=== PATIENT | male | born 1980 | race Caucasian/White ===

== ENCOUNTER 2023-05-26 14:36 | Emergency (ER) | payer MEDICAID ==
[~2023-05-26] VITALS: Ht 180 cm; Wt 85.0 kg
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
[2023-05-26 14:57] LABS: BASOPHILS % (AUTO) 1 % (0-10); EOSINOPHILS # (AUTO) 0.1 10^3/uL (0.0-0.3); EOSINOPHILS % (AUTO) 2 % (0-10); HEMATOCRIT 42 % (40-54); HEMOGLOBIN 14.2 g/dL (13.3-17.7); LYMPHOCYTES # (AUTO) 1.7 X 10^3 (1.0-4.0); LYMPHOCYTES % (AUTO) 35 % (12-44); MEAN CORPUSCULAR HEMOGLOBIN 30 pg (25-34); MEAN CORPUSCULAR HGB CONC 34 g/dL (32-36); MEAN CORPUSCULAR VOLUME 88 fL (80-99); MONOCYTES # (AUTO) 0.5 X 10^3 (0.0-1.0); MONOCYTES % (AUTO) 10 % (0-12); NEUTROPHILS # (AUTO) 2.6 X 10^3 (1.8-7.8); NEUTROPHILS % (AUTO) 52 % (42-75); PLATELET COUNT 223 10^3/uL (130-400)
[2023-05-26 15:03] LABS: ALBUMIN 3.9 GM/DL (3.2-4.5); INR 0.9 (0.8-1.4); PROTHROMBIN TIME PATIENT 12.6 SEC (12.2-14.7)
[2023-05-26 15:04] LABS: CHLORIDE 112 MMOL/L (98-107); POTASSIUM 3.7 MMOL/L (3.6-5.0); SODIUM 144 MMOL/L (135-145)
[2023-05-26 15:05] LABS: CALCIUM 8.6 MG/DL (8.5-10.1)
[2023-05-26 15:06] LABS: GLUCOSE 102 MG/DL (70-105); TOTAL PROTEIN 6.4 GM/DL (6.4-8.2)
[2023-05-26 15:07] LABS: CARBON DIOXIDE 22 MMOL/L (21-32)
[2023-05-26 15:08] LABS: BILIRUBIN,TOTAL 0.3 MG/DL (0.1-1.0)
[2023-05-26 15:09] LABS: ALKALINE PHOSPHATASE 88 U/L (40-136)
[2023-05-26 15:10] LABS: CREATININE SERUM 0.82 MG/DL (0.60-1.30); GFR ESTIMATED 111
--- NOTE | 2023-05-26 15:10 | Diagnostic Imaging Report ---
INDICATION: Chest pain COMPARISON: None. FINDINGS: Single frontal view of the chest demonstrates normal heart size and pulmonary vascularity. The lungs are well aerated and clear. No large pleural effusion or pneumothorax is seen. The visualized osseous structures show no acute abnormalities. IMPRESSION: 1. No acute cardiopulmonary process. Dictated by: Dictated on workstation # [id number]
[2023-05-26 15:11] LABS: BUN/CREATININE RATIO 17
[2023-05-26 15:13] LABS: ALANINE AMINOTRANSFERASE 21 U/L (0-55); MAGNESIUM 1.9 MG/DL (1.6-2.4)
[2023-05-26 15:14] LABS: CREATINE KINASE 523 U/L (30-200)
[2023-05-26 15:20] LABS: BILIRUBIN,URINE NEGATIVE (NEGATIVE); CLARITY,URINE CLEAR; COLOR,URINE YELLOW; GLUCOSE, URINE (UA) NEGATIVE (NEGATIVE); KETONES,URINE NEGATIVE (NEGATIVE); LEUKOCYTE ESTERASE ,URINE NEGATIVE (NEGATIVE); NITRITE,URINE NEGATIVE (NEGATIVE); PROTEIN,URINE NEGATIVE (NEGATIVE)
[2023-05-26] MEDS ORDERED: NS IV 1000 ML 1,000 ML IV STA (15:24)
[2023-05-26 15:30] LABS: BACTERIA,URINE NEGATIVE /HPF; RBC,URINE RARE /HPF; WBC,URINE RARE /HPF
[2023-05-26 16:21] VITALS: BP 108/68
== END 2023-05-26 16:21 | disposition left against medical advice (07) ==
LOC: EDUNIT# 14:36 → ER 14:38
DX: R07.2 Precordial pain (principal); R03.1 Nonspecific low blood-pressure reading; F17.210 Nicotine dependence, cigarettes, uncomplicated; Z95.5 Presence of coronary angioplasty implant and graft; Z79.01 Long term (current) use of anticoagulants
CPT/HCPCS: 36415; 71045; 80053; 81000; 82550; 83735; 84484; 85025; 85610; 85730; 93005; 93041